=== PATIENT | male | born 1960 | race Caucasian/White ===

== ENCOUNTER 2016-10-06 07:04 | Day surgery (SDC) | payer OTHER ==
[2016-10-03 13:32] VITALS: BMI 39.1
[2016-10-06] MEDS ORDERED: LIDOCAINE HCL/PF 1% SDV 5ML VIAL ONE (07:47)
[2016-10-06] MEDS ORDERED: PROPOFOL 20 ML ONE ×3 (07:47→08:31)
[2016-10-06 09:11] VITALS: TEMP 98.5
[2016-10-06 12:26] VITALS: BP 148/97; PULSE 80
--- NOTE | 2016-10-07 13:19 | PATH ---
Surgical Pathology Report Patient Name: LUCIEN HILL [facility]. Rec. #: [id number] /Age/Gender: 1960 (Age: 56) / M Account: [id number] Location: [facility] Taken: 10/06/2016 Received: 10/06/2016 Reported: 10/07/2016 Physicians: Shey Armenta M.D. Specimen(s) Received A: BX ANTRUM B: BX GE JUNCTION C: BX PROXIMAL RIGHT COLON POLYP D: BX TRANSVERSE COLON POLYPS E: BX SPLENIC FLEXURE POLYP F: POLYP SIGMOID G: BX RECTAL POLYPS Clinical History Dyspepsia, rule out ulcer, adenoma surveillance GERD, hiatal hernia, atrophic gastritis, colon polyps Final Diagnosis A. STOMACH, ANTRUM, BIOPSY: GASTRIC ANTRAL MUCOSA WITH MODERATE CHRONIC GASTRITIS WITH FOCAL ATROPHIC FEATURES. NEGATIVE FOR DYSPLASIA IMMUNOSTAIN FOR H. PYLORI IS NEGATIVE FOR ORGANISMS. B. GE JUNCTION, BIOPSY: SQUAMOUS EPITHELIUM WITH CHRONIC INFLAMMATION AND REFLUX TYPE CHANGES. NO COLUMNAR EPITHELIUM PRESENT (NO INTESTINAL METAPLASIA /ROSALES'S ESOPHAGUS IDENTIFIED). C. COLON, PROXIMAL RIGHT, POLYP, BIOPSY: INFLAMMATORY-TYPE POLYP. D. COLON, TRANSVERSE, POLYPS, BIOPSY: TUBULAR ADENOMA. ADDITIONAL POLYPOID FRAGMENTS OF HYPERPLASTIC COLONIC MUCOSA E. COLON, SPLENIC FLEXURE, POLYP, BIOPSY: FRAGMENTS OF HYPERPLASTIC-TYPE POLYP WITH FEATURES OR SESSILE SERRATED ADENOMA F. COLON, SIGMOID, POLYP, POLYPECTOMY: HYPERPLASTIC-TYPE POLYP WITH FOCAL FEATURES OF SESSILE SERRATED ADENOMA. G. RECTUM, POLYPS, BIOPSY: HYPERPLASTIC POLYPS. Electronically Signed Trevon Peoples M.D. Gross Description A. Received in formalin, labeled "biopsy antrum" are 4 whaley, irregular portions of soft tissue ranging from 0.1-0.4 cm in greatest dimension. The specimens are submitted in toto in one cassette. B. Received in formalin, labeled "biopsy GE junction" are 2 whaley, irregular portions of soft tissue measuring 0.2 and 0.7 cm in greatest dimension. The specimens are submitted in toto in one cassette. C. Received in formalin, labeled "biopsy proximal right colon polyp" are 3 whaley, irregular portions of soft tissue ranging from 0.1-0.5 cm in greatest dimension. The specimens are submitted in toto in one cassette. D. Received in formalin, labeled "biopsy transverse colon polyps" are 4 whaley, irregular portions of soft tissue ranging from 0.2-0.4 cm in greatest dimension. The specimens are submitted in toto in one cassette. E. Received in formalin, labeled "biopsy splenic flexure" are 5 whaley, irregular portions of soft tissue ranging from 0.1-0.4 cm in greatest dimension. The specimens are submitted in toto in one cassette. F. Received in formalin, labeled "sigmoid polyp" is a whaley, irregular portion of soft tissue measuring 0.3 cm in greatest dimension. The specimen is submitted in toto in one cassette. G. Received in formalin, labeled "biopsy rectal polyps" are 2 whaley, irregular portions of soft tissue measuring 0.3 and 0.4 cm in greatest dimension. The specimens are submitted in toto in one cassette. 10/06/2016 [facility]10/06/2016
== END 2016-10-06 09:45 | disposition home or self-care (01) ==
LOC: JASU-ENDO 07:04
PROVIDERS: ATTEND Internal Medicine Gastroenterology
PROC: 0DBP8ZX Excision of Rectum, Via Natural or Artificial Opening Endoscopic, Diagnostic (ICD-10-PCS; 2016-10-06)
PROC: 0DBE8ZX Excision of Large Intestine, Via Natural or Artificial Opening Endoscopic, Diagnostic (ICD-10-PCS; 2016-10-06)
PROC: 0DBL8ZX Excision of Transverse Colon, Via Natural or Artificial Opening Endoscopic, Diagnostic (ICD-10-PCS; 2016-10-06)
PROC: 0DBN8ZX Excision of Sigmoid Colon, Via Natural or Artificial Opening Endoscopic, Diagnostic (ICD-10-PCS; 2016-10-06)
PROC: 0DB48ZX Excision of Esophagogastric Junction, Via Natural or Artificial Opening Endoscopic, Diagnostic (ICD-10-PCS; 2016-10-06)
PROC: 0DB68ZX Excision of Stomach, Via Natural or Artificial Opening Endoscopic, Diagnostic (ICD-10-PCS; 2016-10-06)
PROC: 0DB38ZX Excision of Lower Esophagus, Via Natural or Artificial Opening Endoscopic, Diagnostic (ICD-10-PCS; 2016-10-06)
PROC: 0DBK8ZX Excision of Ascending Colon, Via Natural or Artificial Opening Endoscopic, Diagnostic (ICD-10-PCS; principal; 2016-10-06 08:00)
DX: Z86.010 Personal history of colon polyps (principal); D12.2 Benign neoplasm of ascending colon; D12.3 Benign neoplasm of transverse colon; K63.5 Polyp of colon; D12.5 Benign neoplasm of sigmoid colon; K62.1 Rectal polyp; K64.8 Other hemorrhoids; K21.9 Gastro-esophageal reflux disease without esophagitis; K25.9 Gastric ulcer, unspecified as acute or chronic, without hemorrhage or perforation
CPT/HCPCS: 88305-TC; 88342-TC

== ENCOUNTER 2019-10-19 07:17 | Day surgery (SDC) | payer OTHER ==
[2019-10-18 12:52] VITALS: BMI 38.7
[2019-10-19 08:39] VITALS: TEMP 97.9
[2019-10-19 09:18] VITALS: BP 102/67; PULSE 88
--- NOTE | 2019-10-20 16:15 | PATH ---
Surgical Pathology Report Patient Name: LUCIEN HILL [facility]. Rec. #: [id number] /Age/Gender: 1960 (Age: 59) / M Account: [id number] Location: [facility]OSCOPY Taken: 10/19/2019 Received: 10/19/2019 Reported: 10/20/2019 Physicians: Shey Armenta M.D. Specimen(s) Received A: CECUM B: SIGMOID POLYP Clinical History Altered bowel habits Postoperative diagnosis: Colon polyps Final Diagnosis A. CECUM, BIOPSY: POLYPOID COLONIC MUCOSA WITH PROMINENT LYMPHOID AGGREGATE. B. SIGMOID COLON, POLYP, BIOPSY: HYPERPLASTIC POLYP. Electronically Signed Sri Nunes M.D. Gross Description A. Received in formalin, labeled "biopsy cecum" are 2 whaley, irregular portions of soft tissue measuring 0.3 and 0.4 cm. in greatest dimension. The specimens are submitted in toto in one cassette. B. Received in formalin, labeled "biopsy sigmoid polyp" is a whaley, irregular portion of soft tissue measuring 0.3 cm. in greatest dimension. The specimen is submitted in toto in one cassette. /10/19/2019 [place]udi/10/19/2019
== END 2019-10-19 09:20 | disposition home or self-care (01) ==
LOC: JASU-ENDO 07:17
PROVIDERS: ATTEND Internal Medicine Gastroenterology
PROC: 0DBN8ZX Excision of Sigmoid Colon, Via Natural or Artificial Opening Endoscopic, Diagnostic (ICD-10-PCS; principal; 2019-10-19 08:00)
DX: Z12.11 Encounter for screening for malignant neoplasm of colon (principal); Z86.010 Personal history of colon polyps; D12.5 Benign neoplasm of sigmoid colon; K64.8 Other hemorrhoids; I10 Essential (primary) hypertension; E11.9 Type 2 diabetes mellitus without complications; Z79.84 Long term (current) use of oral hypoglycemic drugs
CPT/HCPCS: 87045; 87046; 87177; 87209